=== PATIENT | male | born 1985 | race Two or more races ===

== ENCOUNTER 2021-07-06 05:20 | Emergency (ER) | payer SELFPAY ==
[~2021-07-06] VITALS: Ht 172.7 cm; Wt 100.0 kg
[2021-07-06 05:25] VITALS: BP 165/90
[2021-07-06] MEDS ORDERED: SODIUM CHLORIDE 0.9% 1,000 ML IV ONE (05:30)
[2021-07-06 05:54] LABS: BASOPHILS % 1.1 % (0.0-2.0); EOSINOPHILS % 0.6 % (0.0-5.0); HEMATOCRIT. 42.9 % (42.0-52.0); HEMOGLOBIN. 14.6 g/dL (14.0-18.0); LYMPHOCYTES % 38.4 % (20.0-50.0); MEAN CORPUSCULAR HEMOGLOBIN 30.1 pg (28.0-32.0); MEAN CORPUSCULAR VOLUME 88.8 fL (80.0-94.0); MEAN PLATELET VOLUME 7.9 fl (7.4-10.4); MONOCYTES % 5.1 % (2.0-8.0); NEUTROPHILS % 54.8 % (40.0-76.0); PLATELET 220 x1000/uL (130-400); RED BLOOD CELL COUNT 4.83 mill/uL (4.7-6.1)
[2021-07-06] MEDS ORDERED: LORAZEPAM 2MG/ML CPJ IM ONE (06:00)
[2021-07-06 06:04] LABS: CHLORIDE 106 mEq/L (98-107)
[2021-07-06 06:11] LABS: CREATINE KINASE 292 IU/L (39-308); ETHANOL BLOOD 118 mg/dL
== END 2021-07-06 06:07 | disposition left against medical advice (07) ==
LOC: ER 05:32
DX: G93.40 Encephalopathy, unspecified (principal); F19.10 Other psychoactive substance abuse, uncomplicated; F17.290 Nicotine dependence, other tobacco product, uncomplicated; F12.10 Cannabis abuse, uncomplicated
CPT/HCPCS: 36415; 80053; 80307; 80320; 80329; 82550; 85025; 93005; 99284; J2060; J7030; G0480